=== PATIENT | female | born 1965 | race Caucasian/White ===

== ENCOUNTER → 2019-01-03 | Outpatient (CLI) | payer OTHER ==
[~2019-01-03] MED LIST: ULTRAM 50MG50 MG PO
== END ==
LOC: MAMMO 08:53
PROVIDERS: ATTEND Obstetrics & Gynecology
DX: Z12.31 Encounter for screening mammogram for malignant neoplasm of breast (principal)
CPT/HCPCS: 77067

== ENCOUNTER → 2019-02-14 | Outpatient (CLI) | payer OTHER ==
--- NOTE | 2019-02-15 08:23 | Diagnostic Imaging Report ---
#[id number] - MGDXLT #UNILATERAL LEFT DIGITAL DIAGNOSTIC MAMMOGRAM WITH SPOT COMPRESSION AND MAGNIFICATION: 02/14/2019 Comparison is made to exam dated: 01/03/2019 mammogram - [facility]. Current study contains 5 films. The tissue of the left breast is heterogeneously dense. This may lower the sensitivity of mammography. There is a grouped area of suspicious microcalcifications in the middle depth at the 1 o'clock position. A biopsy is recommended however, closely associated with these are two blood vessels making a stereotactic biopsy hazaradous. Surgical consultation and mammographic needle localization is probably the safest manner to approach these calcifications. The patient did state that she had a prior mammogram in [place] but does not remember the name of the facility. If old films become available for review then a biopsy might not be required. IMPRESSION: SUSPICIOUS OF MALIGNANCY Suspicious microcalcification in the left breast and biopsy should be considered if old films do not become available. These findings and options were discussed with the patient. Aubrey Hebert Jr., D.O. cw/:02/14/2019 16:36:54 Cold Roll Operator: Kayleigh DYE(Tello)(M), [facility] letter sent: Abnormal Exam Mammogram BI-RADS: 4b Suspicious abnormality - intermediate suspicion of malignancy
== END ==
LOC: MAMMO 07:47
PROVIDERS: ATTEND Obstetrics & Gynecology
DX: R92.1 Mammographic calcification found on diagnostic imaging of breast (principal)

== ENCOUNTER → 2019-04-13 | Day surgery (SDC) | payer OTHER ==
[~2019-04-13] MED LIST changes: +BUPIVACAINE 0.25%/EPI 30ML SDV INJ ONE; +DEXAMETHASONE SOD PHOS INJ 4 MG/ML VIAL ONE; +LIDOCAINE HCL 1% LOCAL INJ 20 ML VIAL ONE; +LIDOCAINE HCL 2% LOCAL INJ 5 ML SDV VIAL INJ ONE; +LISINOPRIL10 MG PO; +MIDAZOLAM HCL 2 MG/2 ML VIAL ONE; +NAPROXEN500 MG PO; +NIACIN500 M1 PO; +ONDANSETRON HCL INJ 2MG/ML 2ML 2 MG/ML VIAL ONE; +PROPOFOL IV EMULSION 10 MG/ML 20 ML VIAL ONE; +SEVOFLURANE INHAL SOLN 250 ML PEN BTL ONE; +VITAMIN D250000 UNIT PO
--- OUTSIDE RECORDS SUMMARY | 2019-04-13 09:37 | XMS REPORT ---
Author Author [facility] Address Unknown Phone Unavailable Care Team Providers Care Blurb Writer Name Role Phone RIZWANA GONSALES Unavailable Unavailable Problems This patient has no known problems. Allergies, Adverse Reactions, Alerts This patient has no known allergies or adverse reactions. Medications This patient has no known medications. Results Test Description Test Time Test Comments Text Results Atomic Results Result Comments MAMMOGRAPHY DIGITAL DX UNI LT 2019-02-14 09:14:00 [place] [address] Patient Name: RUBENS EARL MR #: [id number] : 1965 Age/Sex: 53/F Req #: [id number] [facility] Physician: Ordered by: RIZWANA GONSALES MD Report #: [id number] Location: MAMMO Room/Bed: Procedure: [id number] MG/MAMMOGRAPHY DIGITAL DX UNI LT Exam Date: 02/14/19 Exam Time: 0833 REPORT STATUS: Signed THIS REPORT HAS BEEN AMENDED. #[id number] - MGDXLT #UNILATERAL LEFT DIGITAL DIAGNOSTIC MAMMOGRAM WITH SPOT COMPRESSION AND MAGNIFICATION: 02/14/2019 Comparison is made to exam dated: 01/03/2019 mammogram - [facility]. Current study contains 5 films. The tissue of the left breast is heterogeneously dense. This may lower the sensitivity of mammography. There is a grouped area of suspicious microcalcifications in the middle depth at the 1 o'clock position. A biopsy is recommended however, closely associated with these are two blood vessels making a stereotactic biopsy hazaradous. Surgical consultation and mammographic needle localization is probably the safest manner to approach these calcifications. The patient did state that she had a prior mammogram in [place] but does not remember the name of the facility. If old films become available for review then a biopsy might not be required. IMPRESSION: SUSPICIOUS OF MALIGNANCY Suspicious microcalcification in the left breast and biopsy should be considered if old films do not become available. These findings and options were discussed with the patient. Jacqueline Hebert Jr., D.O. cw/:02/14/2019 16:36:54 Electronic Scale Tester: Kayleigh MCKEON)([place]), [facility] letter sent: Abnormal Exam Mammogram BI-RADS: 4b Suspicious abnormality - intermediate suspicion of malignancy AMENDMENT: 02/23/2019 Jacqueline Hebert Jr., D.O. Comparison to outside mammograms dated 09/03/2011 from [facility] in [place] is now possible as they have become available. The suspicious calcification in the left breast was not present on these old studies. Surgical consultation for needle localization and excisional biopsy is recommend ed. Amended BI-RADS: 4b Suspicious abnormality - intermediate suspicion of malignancy letter sent: Biopsy Required Dictated By: JACQUELINE HEBERT DO 1636 Transcribed By: JOSE on 02/23/19 1355 COPY TO: RIZWANA GONSALES MD MAMMOGRAPHY DIGITAL SCR BILAT 2019-01-03 10:20:00 [place] [address] Patient Name: RUBENS EARL MR #: [id number] : 1965 Age/Sex: 53/F Req #: [id number] Adm Physician: Ordered by: RIZWANA GONSALES MD Report #: [id number] Location: MAMMO Room/Bed: Procedure: [id number] MG/MAMMOGRAPHY DIGITAL SCR BILAT Exam Date: 01/03/19 Exam Time: 09 REPORT STATUS: Signed #[id number] - [id number] #BILATERAL DIGITAL SCREENING MAMMOGRAM WITH CAD: 01/03/2019 CLINICAL: Routine screening. No prior exams were available for comparison. Current study contains 4 films. The tissue of both breasts is heterogeneously dense. This may lower the sensitivity of mammography. Current study was also evaluated with a Computer Aided Detection (CAD) system. There is an amorphous calcification in the left breast at 1 o'clock middle depth. Benign calcifications in the right breast. Mole markers on both breasts. No other significant masses, calcifications, or other findings are seen in either breast. IMPRESSION: INCOMPLETE: NEEDS ADDITIONAL IMAGING EVALUATION The amorphous calcification in the left breast is indeterminate. Spot magnification views are recommended. The patient will be contacted by the Mammography Department to schedule this appointment. Jacqueline Hebert Jr., D.O. cw/:01/20/2019 09:36:14 Electronic Scale Tester: Kayleigh DYE(R)(M), [facility] letter sent: Additional Imaging Needed Mammogram BI-RADS: 0 Indeterminate Dictated By: JACQUELINE HEBERT DO 5 Transcribed By: JOSE on 01/20/19935 COPY TO: RIZWANA GONSALES MD
[2019-04-13 10:28] LABS: BASOPHILS # (AUTO) 0.1 (0.0-0.1); BASOPHILS % 0.8 % (0.0-1.0); EOSINOPHILS # (AUTO) 0.3 (0.0-0.4); EOSINOPHILS % 3.9 % (0.0-6.0); HEMATOCRIT 38.1 % (34.2-44.1); HEMOGLOBIN 11.9 g/dL (12.0-16.0); LYMPHOCYTES # (AUTO) 2.2 (1.0-3.2); LYMPHOCYTES % 30.5 % (18.0-39.1); MEAN CORPUSCULAR HEMOGLOBIN 19.8 pg (28-32); MEAN CORPUSCULAR HGB CONC 31.2 g/dL (31-35); MEAN CORPUSCULAR VOLUME 63.4 fL (81-99); MONOCYTES # (AUTO) 0.5 (0.2-0.8); MONOCYTES % 7.3 % (4.4-11.3); NEUTROPHILS # (AUTO) 4.2 (2.1-6.9); NEUTROPHILS % 57.1 % (38.7-80.0); PLATELET COUNT 238 x10e3/uL (140-360); RED BLOOD COUNT 6.01 x10e6/uL (3.6-5.1)
[2019-04-13 10:46] LABS: ANION GAP 11.6 mmol/L (8-16); BLOOD UREA NITROGEN 16 mg/dL (7-26); BUN/CREATININE RATIO 23 (6-25); CALCIUM 9.7 mg/dL (8.4-10.2); CARBON DIOXIDE 26 mmol/L (22-29); CHLORIDE 106 mmol/L (98-107); CREATININE, SERUM 0.69 mg/dL (0.57-1.11); EST GLOMERULAR FILTRATION RATE > 60 ML/MIN (60-); GLUCOSE 82 mg/dL (74-118); POTASSIUM 3.6 mmol/L (3.5-5.1); SODIUM 140 mmol/L (136-145)
[2019-04-13 14:00] VITALS: BP 129/80
--- NOTE | 2019-04-13 19:40 | Operative Report ---
DATE OF PROCEDURE: 04/13/2019 SURGEON: Kraig Balderrama MD PREOPERATIVE DIAGNOSIS: Left breast mass with suspicious calcifications, rule out malignancy. POSTOPERATIVE DIAGNOSIS: Left breast mass with suspicious calcifications, rule out malignancy, pending permanent. OPERATION PERFORMED: Left partial mastectomy with preoperative mammographic guided needle localization and intraoperative specimen mammography. WHOLESALE REPRESENTATIVE: MARC Cardoso. ANESTHESIA: General. COMPLICATIONS: None. ESTIMATED BLOOD LOSS: Minimal. DESCRIPTION OF PROCEDURE: With the patient lying in bed in the supine position under good general anesthesia after having undergone a needle localization of the suspicious area in the upper outer quadrant of the left breast, the left breast was then prepped with Betadine solution and draped in the usual manner. The area overlying the suspicious area was then infiltrated with 0.25% Marcaine with epinephrine. An incision was made in the upper outer quadrant of the left breast. The wire was identified and far up to the area in question. The area in question was then totally and completely encircled and removed containing the wire. The specimen was properly oriented with sutures and sent for specimen mammography, which confirmed that the suspicious area of calcification had been removed and was contained within the specimen. The whole area was then thoroughly irrigated. Perfect hemostasis was ascertained. The breast tissue was then reapproximated with interrupted sutures of 2-0 chromic and the skin was closed with subcuticular 5-0 Vicryl. Benzoin, Steri-Strips, and Band-Aids were applied. The sponge, lap, and needle count was correct. The patient tolerated the procedure well and returned to the recovery room in stable condition. Kraig Balderrama MD JLR/MODL /[id number]
--- NOTE | 2019-04-14 08:28 | Diagnostic Imaging Report ---
#[id number] - [id number] SPECIMEN: 04/13/2019 Correlation is made to exams dated: 04/13/2019 localization, 02/14/2019 mammogram and 01/03/2019 mammogram - [facility]. The specimen radiograph contains the microcalcifications. IMPRESSION: SPECIMEN Follow-up with ACR/ACS guidelines. Aubrey Hebert Jr., D.O. cw/:04/13/2019 15:12:46 Precision Grinder: Kayleigh DYE(R)(M), [facility]
--- NOTE | 2019-04-14 08:28 | Diagnostic Imaging Report ---
#[id number] - [id number] NEEDLE LOCALIZATION: 04/13/2019 PROCEDURE DESCRIPTION: Preoperative localization was requested for the grouped calcification in the left breast at the 1 o'clock position. Written informed consent was obtained from the patient, and a formal time out was taken to confirm patient identity and procedure to be perfomed. Using standard full barrier sterile technique, 1% lidocaine local anesthesia, and mammographic guidance, the calcification was preoperatively localized with a hookwire. Final CC and LM mammograms were obtained to document wire location. A sterile bandage was placed over the wire and the patient was transferred from mammography with no immediate complications noted. Correlation is made to exams dated: 02/14/2019 mammogram and 01/03/2019 mammogram - [facility]. IMPRESSION: NEEDLE LOCALIZATION Follow-up with ACR/ACS guidelines. Aubrey Hebert Jr., D.O. cw/:04/13/2019 15:10:21 Flash Ranging Crewmember: Kayleigh MCKEON)([place]), [facility] [id number]
== END | disposition home or self-care (01) ==
LOC: OR 09:35
PROVIDERS: ATTEND Surgery
DX: N64.89 Other specified disorders of breast (principal); I10 Essential (primary) hypertension; Z88.6 Allergy status to analgesic agent
CPT/HCPCS: 19281; 19301; 36415; 76098; 80048; 85025; 88307; 93005; J1100; J2001 ×2; J2250; J2405; J2704